=== PATIENT | female | born 1955 | race African-American/Black ===

== ENCOUNTER 2023-08-25 04:49 | Emergency (ER) | payer MEDICARE, OTHER, SELFPAY ==
[2023-08-25 04:50] VITALS: BP 130/94
[2023-08-25] MEDS: POLYTRIM OPHTHALMIC SOLUTION 1 DROP OPHTH (07:18)
[2023-08-25] MEDS: MOTRIN 400 MG PO (07:18)
--- NOTE | 2023-08-25 08:28 | ED.GENMED ---
History of Present Illness
General
Chief Complaint: Eye Problems
Source: patient
Exam Limitations: none
Time Seen by Provider: 08/25/23 06:49
Travel History
Have you had any contact with someone who has COVID-19?: No
Do you have any symptoms of coronavirus? Fever > 100 degrees, chills, cough, shortness of breath, sore throat, loss of taste or smell, muscle aches, or headache?: No
History of Present Illness
History of Present Illness:
68-year-old female presents with right eye redness and pain that woke her up. Patient states that she does have some photophobia. Patient admits that she recently had allergic reaction to food and had been put on steroids. Patient denies vision
changes. No fevers. No vomiting.
Past History
Past History
ED Past Medical History: HTN, Hypercholesterolemia and NIDDM
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 May 2013.)
Social History
Tobacco: Non-smoker
Alcohol: None
Personal:
Living: with family
Employment: Employed
Family History
Family History: Other (Noncontributory)
Phy Exam
Physical Exam
Physical Exam:
CONSTITUTIONAL Patient alert and oriented to person, place and time. Well-appearing. Vital signs reviewed.
HEAD atraumatic, normocephalic.
EYES eyelids normal to inspection, Pupils equally round and reactive to light, Extraocular muscles intact mild scleral injection on the right. There is no sluggish pupil or midpoint pupil. The pupils normally reactive. Consensual photophobia
noted. Temporal artery nontender
Fluorescein stain normal, no uptake
Intraocular pressure is 10 on the right
NECK normal range of motion, Trachea midline, no jugular venous distention.
RESPIRATORY CHEST No respiratory distress noted, Chest expansion equal
BACK normal inspection, no obvious deformities
UPPER EXTREMITY range of motion normal, Motor strength normal, no cyanosis, no edema.
LOWER EXTREMITY range of motion normal, Motor strength normal, no cyanosis, no edema.
NEURO Speech normal, No focal motor deficits, Mayito coma scale 15, Memory normal, Cranial Nerves intact to screening exam.
SKIN skin warm, dry, and normal in color.
Course
Orders/Labs/Results
Orders:
Orders
08/25/23 07:08
Ibuprofen [Motrin] 400 mg PO NOW STA
08/25/23 08:00
Polymyxin B/Trimethoprim [Polytrim Ophthalmic Solution] See Dose Instructions OPHTH QID
08/25/23 08:27
Fluorescein Sodium [Ful-Sandra] 1 mg .ROUTE .STK-MED ONE
Tetracaine HCl [Tetracaine 0.5% Ophthalmic Solution] 1 drop .ROUTE .STK-MED ONE
Vital Signs
Initial and Last Documented VS:
Initial Vital Signs
Temp Pulse Resp BP Pulse Ox
98 F 90 22 130/94 100
08/25/23 04:50 08/25/23 04:50 08/25/23 04:50 08/25/23 04:50 08/25/23 04:50
Last Documented Vital Signs
Temp Pulse Resp BP Pulse Ox
98 F 82 18 128/71 99
08/25/23 04:50 08/25/23 08:47 08/25/23 08:47 08/25/23 08:47 08/25/23 08:47
MDM/Problems Addressed
MDM/Problems Addressed:
Eye redness
*Pulse Oximetry
Patient hypoxic: no
*Critical Care Note
Total Time (30-74mins, 75-104mins- exclusive of procedures): Not Applicable
Patient Management
Escalation/DeEscalation of care consider admission/obs:
Right-sided eye redness. Recent use of steroids but eye pressure is normal. Given oral NSAIDs. Cover with antibiotic drops but consider anterior chamber inflammation. Will refer to ophthalmology for the consideration of uveitis, episcleritis,
iritis.
ED Attending Note
-
Portions of this chart may have been created with voice recognition software.� Occasional wrong word or��sound alike� substitutions may have occurred due to the inherent limitations of voice recognition software.
Discharge Plan
Departure
Patient Disposition: Home (Routine Discharge)
Date of Disposition: 08/25/23
Time of Disposition: 08:35
Patient with high blood pressure during this ER visit?: Yes
Discharge Problem:
Redness of eye, right
Instructions: How to Use Eye Drops, BLOOD PRESSURE
Prescriptions:
No Action
ketorolac 10 MG tablet
10 mg PO QIDPRN PRN (Reason: flank pain) Qty: 12 0RF
ondansetron 4 MG tablet,disintegrating
4 mg PO QIDPRN PRN (Reason: nausea/vomiting) Qty: 20 0RF
Referrals:
Cynthia Pugh DO [Family Provider] -
Activity Restrictions/Additional Instructions:
Eye redness
Please see your can capper tomorrow for follow-up. Return immediately for change in vision, fevers, worsening symptoms or any other concerns. Please use 2 drops in the right eye every 6 hours of Polytrim.
Interventions
Interventions:
*Risk Screen - Suicide Last Done: 08/25/23 04:50
*General Assessment Last Done: 08/25/23 06:00
*Neglect/Abuse Screening Last Done: 08/25/23 04:50
ED- Fall Risk Assessment Last Done: 08/25/23 06:00
*ED COVID-19 Vaccine History Last Done: 08/25/23 06:00
*Nursing Disposition Last Done: 08/25/23 08:47
Discharge Date and Time
Discharge Date/Time: 08/25/23 08:48
[2023-08-25 08:47] VITALS: BP 128/71
== END 2023-08-25 08:48 | disposition home or self-care (01) ==
LOC: EMR 04:49
PROVIDERS: EMERGENCY PHYSICIAN Emergency Medicine; FAMILY PHYSICIAN Family Medicine
DX: H57.89 Other specified disorders of eye and adnexa (principal); I10 Essential (primary) hypertension
CPT/HCPCS: 99283

== ENCOUNTER → 2024-09-09 13:39 | Outpatient (REF) | payer MEDICARE, OTHER, SELFPAY | LOC: WDC 13:39 | PROVIDERS: ATTENDING PHYSICIAN Obstetrics & Gynecology Gynecology; FAMILY PHYSICIAN Family Medicine | DX: Z12.39 Encounter for other screening for malignant neoplasm of breast (principal); M85.89 Other specified disorders of bone density and structure, multiple sites | CPT/HCPCS: 77063; 77067; 77080 ==